=== PATIENT | male | born 1965 | race Caucasian/White ===

== ENCOUNTER 2017-12-11 05:55 | Day surgery (SDC) | payer BC ==
[2017-12-11] MEDS ORDERED: DIPRIVAN 200 MG/20 ML IV ONE (05:56)
[2017-12-11] MEDS ORDERED: Ketamine HCl 50 MG/ML IV ONE (05:56)
[2017-12-11] MEDS ORDERED: Lactated Ringers 1,000 ML IV ONE (06:25)
[2017-12-11] MEDS ORDERED: Lactated Ringers 1,000 ML IV SCH (06:30)
--- NOTE | 2017-12-11 09:05 | OP ---
SURGERY DATE/TIME: 12/11/2017 0801 PREOPERATIVE DIAGNOSIS: Screening colonoscopy. POSTOPERATIVE DIAGNOSIS: Sigmoid colon polyp x1. PROCEDURE: Colonoscopy. SURGEON: Mauricio Brown M.D. ANESTHESIA: MAC by Flaquito Peralta CRNA. ESTIMATED BLOOD LOSS: Minimal. SPECIMENS: One hot forceps polypectomy from the sigmoid colon. DESCRIPTION OF PROCEDURE: After informed written consent was obtained, the patient was taken to the endoscopy suite. He underwent monitored anesthesia and digital rectal exam showed normal sphincter tone and no internal lesions. The scope was inserted into the rectum and sequentially the entire colonic mucosa was traversed. The level of cecum was reached and verified with direct visualization of ileocecal valve. Upon withdrawal careful mucosal inspection revealed no gross abnormalities. There was some liquid stool throughout multiple areas of the colon which was suctioned to provide better view. There was a small sessile polyp in the distal sigmoid colon. It was grasped with forceps, cauterized and removed. It was removed in two pieces and sent for pathology testing. There was good hemostasis with complete removal of the lesion. Prior to withdrawal retroflexion showed no internal lesions. The scope was removed and the patient was transferred to the recovery room in excellent condition.
[2017-12-11 09:17] VITALS: O2SAT 97
[2017-12-11 09:46] VITALS: BP 131/87; PULSE 62
== END 2017-12-11 09:30 | disposition home or self-care (01) ==
LOC: SDC 05:55
PROVIDERS: ATTEND Family Medicine
PROC: 0DBN8ZX Excision of Sigmoid Colon, Via Natural or Artificial Opening Endoscopic, Diagnostic (ICD-10-PCS; principal; 2017-12-11)
DX: Z12.11 Encounter for screening for malignant neoplasm of colon (principal); K63.5 Polyp of colon
CPT/HCPCS: 88305; J2704